=== PATIENT | male | born 1995 | race Caucasian/White ===

== ENCOUNTER 2017-05-25 04:41 | Emergency (ER) | payer OTHER ==
[~2017-05-25] VITALS: Ht 180.3 cm; Wt 75.0 kg
[~2017-05-25 04:41] MED LIST: NO HOME MEDICATIONS; NORCO 325 MG-51 TAB PO; TAMIFLU 75MG75 MG PO; VICODIN 5/5001 UDTAB PO
[2017-05-25 04:43] VITALS: BP 118/68; TEMP 98
[2017-05-25 05:23] VITALS: PULSE 44
== END 2017-05-25 05:24 | disposition home or self-care (01) ==
LOC: COL.ER 04:41
DX: S05.02XA Injury of conjunctiva and corneal abrasion without foreign body, left eye, initial encounter (principal); W21.89XA Striking against or struck by other sports equipment, initial encounter